=== PATIENT | female | born 1985 | race Asian ===

== ENCOUNTER 2023-05-24 18:08 | Inpatient (IN) ==
[2023-05-24] MEDS ORDERED: Lidocaine 1% VIAL 10 MG/ML 30 ML VIAL INJ PRN (19:21)
[2023-05-24] MEDS: Lactated Ringers 1000 ml BAG 1,000 ML IV ONE (19:51)
[2023-05-24 19:59] LABS: ABS Lymphocytes 2.2 10^3/uL (1.0-4.8); ABS Monocytes 0.9 10^3/uL (0.0-0.9); ABS Neutrophils 14.7 10^3/uL (1.5-7.6); ABS Nucleated RBC 0.01 10^3/ul; Eosinophil % 0.2 %; Hematocrit 40.1 % (35-45); Hemoglobin 14.2 g/dL (11.5-14.3); Lymphocyte % 12.1 %; Mean Corpuscular Hemoglobin 33.2 pg (27-33); Mean Corpuscular Hgb Conc 35.3 g/dL (31-36); Mean Platelet Volume 10.2 fL (7.5-11.2); Platelet Count 166 10^3/uL (150-450); Red Blood Count 4.27 10^6/uL (3.63-4.92); Red Cell Distribution Width 12.7 % (12-17); White Blood Count 17.8 10^3/uL (3.8-11.8)
[2023-05-24 20:33] LABS: Urine Benzodiazepine Screen None Detected (None Detect); Urine Cannabinoids Screen None Detected (None Detect); Urine Opiates Screen None Detected (None Detect)
[2023-05-24] MEDS ORDERED: Phenylephrine 40 mcg/mL 10mL (400mcg) SYRINGE IV PUSH PRN ×2 (20:47)
[2023-05-24] MEDS: OBEPIDURAL (200 ML) 200 ML EPIDURAL ONE (20:58)
[2023-05-24] MEDS: Lactated Ringers 1000 ml BAG 1,000 ML IV SCH (22:32)
[2023-05-25] MEDS: Oxytocin in LR 20,000 MILLI.UNIT/1,000 ML BAG IV SCH (06:00)
[2023-05-25] MEDS: OBEPIDURAL (200 ML) 200 ML EPIDURAL SCH (06:56)
[2023-05-25 07:50] LABS: Urine Appearance Turbid; Urine Bilirubin Negative (Negative); Urine Blood 3+ (Negative); Urine Color Yellow; Urine Glucose Negative (Negative); Urine Ketones 2+ (Negative); Urine Nitrite Negative (Negative); Urine Protein 1+ (>=30 mg/dL) (Negative); Urine Specific Gravity 1.015 (1.002-1.030); Urine Urobilinogen Negative (Negative); Urine pH 6.5 (5.0-8.0)
[2023-05-25 07:54] LABS: Urine Bacteria Absent /HPF (Absent); Urine Red Blood Cell 3+(>10/hpf) /HPF (0-Trace); Urine Squamous Epithelial Cell Present /HPF (Absent); Urine White Blood Cell Trace(0-5/hpf) /HPF (0-Trace)
[2023-05-25] MEDS ORDERED: Glycerin ADULT 2.4 gm SUPP PR PRN (12:42)
[2023-05-25] MEDS ORDERED: Lactated Ringers 1000 ml BAG 1,000 ML IV SCH (13:00)
[2023-05-25] MEDS: Buffered Lidocaine 1% SYRIN 1 ml INTRADERM ONE (13:28)
[2023-05-25] MEDS: Lidocaine 1.5% EPI 1:200,000 30 ML SDV ONE (13:29)
[2023-05-25] MEDS: Lactated Ringers 1000 ml BAG 1,000 ML IV ONE (13:29)
[2023-05-25] MEDS: Dibucaine 1% OINT 28.35 GM TUBE PR PRN (13:31)
[2023-05-25] MEDS: Witch Hazel PAD JAR TOPICAL PRN (13:31)
[2023-05-26 06:44] LABS: ABS Eosinophils 0.1 10^3/uL (0.0-0.5); ABS Lymphocytes 2.3 10^3/uL (1.0-4.8); ABS Monocytes 0.9 10^3/uL (0.0-0.9); ABS Neutrophils 14.4 10^3/uL (1.5-7.6); ABS Nucleated RBC 0.01 10^3/ul; Eosinophil % 0.3 %; Hemoglobin 9.4 g/dL (11.5-14.3); Mean Corpuscular Hgb Conc 34.9 g/dL (31-36); Mean Corpuscular Volume 94.6 fL (80-97); Mean Platelet Volume 10.1 fL (7.5-11.2); Platelet Count 128 10^3/uL (150-450); Red Blood Count 2.85 10^6/uL (3.63-4.92); Red Cell Distribution Width 13.5 % (12-17); White Blood Count 17.7 10^3/uL (3.8-11.8)
[2023-05-27 07:58] VITALS: BP 104/57
== END 2023-05-27 12:02 | disposition home or self-care (01) | DRG 560 ==
LOC: MCHOBOUT 18:08 → MCHOB 19:33
PROVIDERS: ADMIT Midwife; ATTEND Registered Nurse